=== PATIENT | female | born 1955 | race Caucasian/White ===

== ENCOUNTER 2018-12-12 17:25 | Emergency (ER) | payer OTHER, MEDICARE ==
[~2018-12-12] VITALS: Ht 157.5 cm; Wt 76.2 kg
[~2018-12-12 17:25] MED LIST: CYCL10 PO; NAPR550 PO; OXYACE5T PO; ROSU10TA; TELM20 PO
[2018-12-12] MEDS ORDERED: IBUP400 PO (19:30)
== END 2018-12-12 19:47 | disposition home or self-care (01) ==
LOC: ER 17:25
DX: S16.1XXA Strain of muscle, fascia and tendon at neck level, initial encounter (principal); R29.818 Other symptoms and signs involving the nervous system; I10 Essential (primary) hypertension; Z88.2 Allergy status to sulfonamides; Z79.899 Other long term (current) drug therapy; V43.92XA Unspecified car occupant injured in collision with other type car in traffic accident, initial encounter
CPT/HCPCS: 72125; 99284-25

== ENCOUNTER 2023-08-10 11:53 | Day surgery (SDC) | payer MEDICARE ==
[~2023-08-10] VITALS: Ht 157.5 cm; Wt 75.9 kg
[~2023-08-10 11:53] MED LIST changes: +ALBU90OI INH; +AMOCLA875 PO; +ATOR10; +Balanced Salt Epinephrine Irrigation Solution 500 mL IR SCH; +IBUP400 PO; +Lidocaine HCl/Pf 1% 5 ML VIAL XX SCH; +Moxifloxacin HCL 0.5 MG/0.1 ML 0.4MLSYR RIGHTEYE SCH; +NS 500 ML IV ONE; +PHENYLEPHRINE\\TROPICAMIDE\\TETRACAINE OPHTHALMIC DILATING SOLN RIGHTEYE PRN; +PRED20 PO; +Povidone-Iodine 450 DROP/30 ML Solution ONE; +Povidone-Iodine 450 DROP/30 ML Solution RIGHTEYE SCH
[2023-08-10] MEDS ORDERED: HYDROCODONE-AC1 EA19 PO (12:19)
[2023-08-10] MEDS ORDERED: TELMISARTAN80 MG PO (12:19)
[2023-08-10] MEDS ORDERED: ALBU90OI INH (12:19)
--- NOTE | 2023-08-10 12:22 | NUR ---
08/10/23 1222 Aster Roberson AT 1219 [place] AT 1221
[2023-08-10] MEDS ORDERED: NS 500 ML IV ONE (12:25)
[2023-08-10] MEDS ORDERED: FentaNYL Citrate 50 MCG/ML 2 ML Injection ONE (12:26)
[2023-08-10] MEDS ORDERED: Midazolam HCl 1MG / ML 2ML Vial ONE (12:26)
[2023-08-10] MEDS ORDERED: Tetracaine HCl 0.5% Opth Soln 15 ml RIGHTEYE ONE (13:01)
[2023-08-10 13:52] VITALS: BP 121/59
== END 2023-08-10 13:53 | disposition home or self-care (01) ==
LOC: ORSCSDS 11:53
PROVIDERS: Student in an Organized Health Care Education/Training Program
PROC: 08RJ3JZ Replacement of Right Lens with Synthetic Substitute, Percutaneous Approach (ICD-10-PCS; principal; 2023-08-10 13:00)
DX: H25.13 Age-related nuclear cataract, bilateral (principal); I10 Essential (primary) hypertension; J44.9 Chronic obstructive pulmonary disease, unspecified; E66.9 Obesity, unspecified; Z68.30 Body mass index [BMI] 30.0-30.9, adult; Z79.899 Other long term (current) drug therapy
CPT/HCPCS: J2250; J3010; J7040; V2632